=== PATIENT | male | born 1955 | race Caucasian/White ===

== ENCOUNTER 2023-10-10 06:01 | Day surgery (SDC) | payer MEDICARE, OTHER, SELFPAY ==
[2023-10-10 06:13] VITALS: BP 132/76; PULSE 77; RESP 16; TEMP 36.4; O2SAT 95; BMI 26.5
[2023-10-10] MEDS: Lactated Ringers 1,000 ML 15 ML IV (06:15)
--- NOTE | 2023-10-10 06:40 | HP.PCM_ITS ---
[facility] - General General Date of Admission: 10/10/23 Date of Service: 10/10/23 Chief Complaint: Screening colonoscopy HPI Narrative FIDE ALEGRIA, is a 68 M who presents today for screening colonoscopy. He has no abdominal pain. He has no nausea, vomiting or diarrhea. Overall he is in very good health. He had a colonoscopy approximately 13 years ago and it was normal. [facility] Medical History (Updated 10/07/23 @ 14:41 by Lynn Blanca) Wears glasses Restless legs Injury of head and neck Non-smoker Shortness of breath on exertion Leg cramps History of echocardiogram History of stress test Cardiology follow-up encounter Hypercholesteremia History of retinal detachment History of aortic aneurysm HTN (hypertension) Home Medications ?Medication ?Instructions ?Recorded ?Last Taken ?Type atorvastatin 20 mg tablet 20 mg PO QHS 02/18/23 Unknown History metoprolol succinate 25 mg 25 mg PO QHS 02/18/23 10/09/23 History tablet,extended release 24 hr Allergy/AdvReac Type Severity Reaction Status Date / Time No Known Allergies Allergy Verified 10/10/23 06:13 Family History Father Hypertension Heart disease Brother Hypertension Surgical History (Updated 10/07/23 @ 14:41 by Lynn Blanca) History of colonoscopy (~2021) History of mandibular surgery History of tonsillectomy History of detached retina repair Social History (Updated 08/11/23 @ 12:54 by Annie Singh) current occupational status: employed current occupation: Dentist Smoking Status: Never smoker alcohol intake: never substance use type: does not use ROS Review of Systems ROS Unobtainable: other Constitutional Constitutional: Denies fatigue, fever(s), poor appetite, weight gain or weight loss ENT HEENT: Denies mouth lesions Cardiovascular Cardiovascular: Denies abdominal bloating, abdominal edema or abdominal pain Respiratory/Chest Respiratory/Chest: Denies change in mental status, change in phlegm color, chest congestion or chest tightness Gastrointestinal Gastrointestinal: Denies belching, bloating, change in bowel habits, change in stool character, chewing difficulty, coffee ground emesis, constipation, cramping, diarrhea, dyspepsia, dysphagia, early satiety, excessive flatus, fecal incontinence, heartburn, hematemesis, hematochezia, hemorrhoids, loose stools, melena, nausea, odynophagia, rectal bleeding, tenesmus, vomiting or weight changes Genitourinary Genitourinary: Denies abdominal discomfort, burning urination or itching Musculoskeletal Musculoskeletal: Reports as per HPI; Denies muscle weakness or myalgias Integumentary Integumentary: Denies jaundice Neurologic Neurologic: Denies lack of coordination or weakness Psychiatric Psychiatric: Denies confusion, depression, memory loss, mood swings, paranoia or suicidal ideation Endocrine Endocrinology: Denies systems reviewed and no addt'l complaints, except as documented Hematologic/Lymphatic Hematologic/Lymphatic: Denies anemia, easy bleeding, easy bruising or lymphadenopathy Allergic/Immunologic Allergic/Immunologic: Denies systems reviewed and no addt'l complaints, except as documented Vital Signs Vital Signs Vital Signs: 10/10/23 06:13 10/10/23 06:13 Temperature 97.6 F L Temperature Source Temporal Pulse Rate 77 Respiratory Rate 16 Respiratory Pattern Normal Blood Pressure 132/76 H Blood Pressure Mean 94 Blood Pressure Source Monitor Blood Pressure Position Semi-Fowlers Blood Pressure Location Right Arm Pulse Ox 95 Oxygen Delivery Method Room Air Weight Weight: 206 lb 12.697 oz Body Mass Index (BMI) 26.5 Physical Exam Const alert General Appearance: cooperative Orientation / Consciousness: oriented to person HEENT hearing grossly normal bilaterally Head and Scalp: normal to inspection Face and Sinus: face symmetric Nose: external nose normal Mouth: oral and palatal mucosa normal Eyes conjunctivae normal General Eye: normal appearance of both eyes Neck full ROM General: normal visual inspection Lymph Lymphatic: no lymphadenopathy noted Chest inspection of chest normal and palpation of chest normal Chest: symmetrical chest wall rise Resp normal respiratory effort Effort and Inspection: able to speak in complete sentences Cardio regular rate GI non-distended Percussion: normal to percussion Rectal Exam: deferred Neuro Speech: speech normal Gait (Neuro): normal gait Assessment & Plan Assessment/Plan (1) Encounter for screening for malignant neoplasm of colon: PLAN: He was explained alternatives, risk, benefits include not withstanding bleeding, infection, sepsis, perforation, need for emergent urgent . He will have an ASA of 3.
--- NOTE | 2023-10-10 07:00 | COLBX_PTH ---
PATIENT: FIDE ALEGRIA LOC: EN U#:[id number] AGE/SX: 68/M ROOM: RE10/10/[address]: Dr. Liang Malin DO : 1955 BED: DIS: 10/10/2023 SPEC #: [id number] RECD: 10/10/23 11:33 STATUS: NICA GALINDO #: [id number] DENNIS: 10/10/23 07:[address]: Liang Malin DEPT: SURGICAL PATHOLOGY RECD BY: Kelsey Moise ENTERED: 10/10/23 13:06 SP TYPE: COLON BX DAMIAN DR: Dr. Gatito White MD Tissues: Sigmoid colon biopsy Procedures: Surgery Specimen Level IV HEADER OPERATION: Colonoscopy with polypectomy PRE-OP DIAGNOSIS: Screening TISSUE SUBMITTED: Sigmoid polyp with cold snare x3 MICROSCOPIC DIAGNOSIS Sigmoid polyp, biopsy: Fragments of hyperplastic polyp. AM/mr 10/11/2023 MICROSCOPIC DESCRIPTION Slides are reviewed. GROSS DESCRIPTION Received in fixative is one container labeled with the patient's name and designated Sigmoid polyp x3 cold snare. The specimen consists of multiple irregular fragments of light bernabe soft tissue that in aggregate measure 1.5 x 0.4 x 0.1 cm. The specimen is totally submitted in one cassette. SULTANA/ 10/10/2023 TC:5 CPT:39304
[2023-10-10 07:06] VITALS: BP 107/73; BP 132/76; PULSE 64; RESP 14; TEMP 36.4; O2SAT 92
[2023-10-10 07:09] VITALS: BP 109/75; BP 132/76; PULSE 62; RESP 14; O2SAT 92
--- NOTE | 2023-10-10 07:10 | OP.COLON_ITS ---
Patient Name: Nolberto Wilson Procedure Date: 10/10/2023 6:30 AM Date of : 1955 Age: 68 Procedure: Colonoscopy Indications: Screening for colorectal malignant neoplasm Providers: Liang Malin DO Medicines: Monitored Anesthesia Care Patient Profile: This is a 68 year old male. Refer to note in patient chart for documentation of history and physical. Last Colonoscopy: more than 10 years ago. Complications: No immediate complications. Procedure: Pre-Anesthesia Assessment: - Prior to the procedure, a History and Physical was performed, and patient medications and allergies were reviewed. The patient is competent. The risks and benefits of the procedure and the sedation options and risks were discussed with the patient. All questions were answered and informed consent was obtained. Patient identification and proposed procedure were verified in the pre-procedure area. Mental Status Examination: alert and oriented. Airway Examination: normal oropharyngeal airway and neck mobility. Respiratory Examination: clear to auscultation. CV Examination: normal. Prophylactic Antibiotics: The patient does not require prophylactic antibiotics. Prior Anticoagulants: The patient has taken no anticoagulant or antiplatelet agents. ASA Grade Assessment: II - A patient with mild systemic disease. After reviewing the risks and benefits, the patient was deemed in satisfactory condition to undergo the procedure. The anesthesia plan was to use monitored anesthesia care (MAC). Immediately prior to administration of medications, the patient was re-assessed for adequacy to receive sedatives. The heart rate, respiratory rate, oxygen saturations, blood pressure, adequacy of pulmonary ventilation, and response to care were monitored throughout the procedure. The physical status of the patient was re-assessed after the procedure. After I obtained informed consent, the scope was passed under direct vision. Throughout the procedure, the patient's blood pressure, pulse, and oxygen saturations were monitored continuously. The Colonoscope was introduced through the anus and advanced to the cecum, identified by appendiceal orifice and ileocecal valve. The colonoscopy was performed without difficulty. The patient tolerated the procedure well. The quality of the bowel preparation was adequate. The ileocecal valve, appendiceal orifice, and rectum were photographed. Scope In: 6:46:48 AM Scope Withdrawal Time 0 hours 11 minutes 5 seconds Scope Out: 7:00:52 AM Total Procedure Duration Time 0 hours 14 minutes 4 seconds Findings: The perianal and digital rectal examinations were normal. Three sessile polyps were found in the recto-sigmoid colon and sigmoid colon. The polyps were 1 to 2 mm in size. These polyps were removed with a cold snare. Resection and retrieval were complete. Verification of patient identification for the specimen was done. Estimated blood loss was minimal. Impression: - Three 1 to 2 mm polyps at the recto-sigmoid colon and in the sigmoid colon, removed with a cold snare. Resected and retrieved. Recommendation: - Repeat colonoscopy in 5 years for surveillance. - Continue present medications. Procedure Code(s): --- Professional --- 50514, Colonoscopy, flexible; with removal of tumor(s), polyp(s), or other lesion(s) by snare technique CPT copyright 2021 [employer]. All rights reserved. The codes documented in this report are preliminary and upon oyster farmer review may be revised to meet current compliance requirements. Liang Malin DO 10/10/2023 7:09:46 AM This report has been signed electronically. Number of Addenda: 0 Note Initiated On: 10/10/2023 6:30 AM
--- NOTE | 2023-10-10 07:11 | OP.CCLET_ITS ---
10/10/2023 Gatito White Re : Colonoscopy procedure for Nolberto Wilson Dear Cindy This procedure was performed on Tuesday, October 10, 2023. My impressions and recommendations are as follows: Impressions : - Three 1 to 2 mm polyps at the recto-sigmoid colon and in the sigmoid colon, removed with a cold snare. Resected and retrieved. Recommendations : - Repeat colonoscopy in 5 years for surveillance. - Continue present medications. My findings are described in the full procedure note, which is enclosed. If I can be of further assistance, please feel free to contact me at . Sincerely, Liang Malin, 10/10/2023 7:09:46 AM This report has been signed electronically.
[2023-10-10 07:16] VITALS: BP 112/78; BP 132/76; PULSE 58; RESP 16; O2SAT 95
[2023-10-10 07:20] VITALS: BP 114/74; BP 132/76; PULSE 56; RESP 14; TEMP 35.9; O2SAT 96
[2023-10-10 07:36] VITALS: BP 132/76
== END 2023-10-10 07:54 | disposition home or self-care (01) ==
LOC: EN 06:02 → AC 06:04
PROVIDERS: PCP Family Medicine; Referring Provider Family Medicine; Visit Provider Internal Medicine Gastroenterology
PROC: 0DJD8ZZ Inspection of Lower Intestinal Tract, Via Natural or Artificial Opening Endoscopic (ICD-10-PCS; CPT 45378; principal; 2023-10-10 06:55)
DX: Z12.11 Encounter for screening for malignant neoplasm of colon (principal); K63.5 Polyp of colon; I10 Essential (primary) hypertension; E78.00 Pure hypercholesterolemia, unspecified; Z79.899 Other long term (current) drug therapy
CPT/HCPCS: 45385; 88305; J7120; J2405